=== PATIENT | male | born 1990 | race Caucasian/White ===

== ENCOUNTER 2017-02-12 | Emergency (ER) | payer BC, OTHER ==
[2017-02-12 00:13] VITALS: BP 108/56; PULSE 75; RESP 18; TEMP 98.6
--- NOTE | 2017-02-12 00:57 | ED ---
Lower Extremity Injury HPI - General Chief Complaint: Extremity Injury, Lower Stated Complaint: R Ankle Injury Time Seen by Provider: 02/12/17 00:15 Source: patient, RN notes reviewed Mode of arrival: wheelchair Limitations: no limitations - History of Present Illness Initial Comments: 26-year-old male presents emergency department with a chief complaint of right ankle pain. Patient states he was playing basket when he came down on his ankle and now has discomfort. Patient states that he has no swelling to the lateral aspect of the ankle. Patient denies any injury to the apical in the past. Patient states he hasn't had any other symptoms with this. Patient denies any head injury with the incident.Patient denies any recent fever, chills , shortness of breath, chest pain, back pain, abdominal pain, nausea vomiting, numbness or tingling, dysuria or hematuria, constipation or diarrhea, headaches or visual changes, or any other current symptoms. - Related Data Home Medications Medication Instructions Recorded Confirmed No Known Home Medications [No 02/12/17 02/12/17 Known Home Medications] Allergies Allergy/AdvReac Type Severity Reaction Status Date / Time No Known Allergies Allergy Verified 03/08/15 19:12 Review of Systems ROS Statement: Those systems with pertinent positive or pertinent negative responses have been documented in the HPI. ROS Other: All systems not noted in ROS Statement are negative. Past Medical History Additional Past Medical History / Comment(s): Malnutrition (2009) History of Any Multi-Drug Resistant Organisms: None Reported Past Surgical History: No Surgical Hx Reported Past Psychological History: Anxiety Smoking Status: Never smoker Past Alcohol Use History: Rare Past Drug Use History: None Reported General Exam - General Exam Comments Initial Comments: General: The patient is awake and alert, in no distress, and does not appear acutely ill. Neck: The neck is supple, there is no tenderness. Cardiovascular: There is a regular rate and rhythm. No murmur, rub or gallop is appreciated. Respiratory: Lungs are clear to auscultation, respirations are non-labored, breath sounds are equal. No wheezes, stridor, rales, or rhonchi. Musculoskeletal: Sensation intact with 2+ pulses throughout the right lower Extremity. Full range of motion of right heel pain with no proximal tib-fib tenderness. Patient has positive range of motion in all planes of the right ankle with lateral malleolus tenderness and swelling noted. Full range motion of the right foot with no pain noted. Neurological: CN II-XII intact, There are no obvious motor or sensory deficits. Coordination appears grossly intact. Speech is normal. Skin: Skin is warm and dry and no rashes or lesions are noted. Psychiatric: Normal mood and affect. Limitations: no limitations Course Vital Signs 02/12/17 00:10 Temperature 98.6 F Pulse Rate 75 Respiratory 18 Rate Blood Pressure 108/56 O2 Sat by Pulse 98 Oximetry Medical Decision Making - Medical Decision Making 26-year-old man presents emergency department with chief complaint of right ankle pain. at this time patient xray reviewed and negative. We discussed follow up and return parameters. Patient in agreement with plan. All questions answered. Patient will be discharged home. - Radiology Data Radiology results: report reviewed, image reviewed Disposition Clinical Impression: Right ankle sprain Disposition: HOME SELF-CARE Condition: Stable Instructions: Ankle Sprain (ED) Additional Instructions: Please use medication as discussed. Please follow up with family doctor if symptoms have not improved over the next two days. Please return to the emergency room if your symptoms increase or worsen or for any other concerns. Referrals: Mikala Patten MD [STAFF PHYSICIAN] - 1-2 days Time of Disposition: 01:18
--- NOTE | 2017-02-12 01:15 | XR ---
EXAM: XR Right Ankle Complete, 3 or More Views CLINICAL HISTORY: Reason: Pain TECHNIQUE: Frontal, lateral and oblique views of the right ankle. COMPARISON: None FINDINGS: Bones/joints: No acute fracture or dislocation identified. Ankle mortise is intact. Soft tissues: Moderate soft tissue swelling over the lateral malleolus. IMPRESSION: Moderate soft tissue swelling over the lateral malleolus without acute fracture or dislocation.
--- NOTE | 2017-02-26 07:42 | CDI ---
Documentation Clarification OP Dear RICCI Turner/ Dr. Bert Boston Please do addendum to ED report that describes the type and material used in the splint applied. Thank you, Gloria De Dios Erp Engineer If you have any questions, please contact Retail Advertising Sales Manager at [phone] [facility]
== END 2017-02-12 01:30 | disposition home or self-care (01) ==
LOC: EC
DX: S93.401A Sprain of unspecified ligament of right ankle, initial encounter (principal); X50.1XXA Overexertion from prolonged static or awkward postures, initial encounter; W19.XXXA Unspecified fall, initial encounter; Y92.009 Unspecified place in unspecified non-institutional (private) residence as the place of occurrence of the external cause; Y93.67 Activity, basketball
CPT/HCPCS: 99283

== ENCOUNTER 2017-03-10 22:08 | Emergency (ER) | payer BC ==
[2017-03-10 22:19] VITALS: TEMP 98.4
[2017-03-10] MEDS ORDERED: METOCLOPRAMIDE 5 MG/ML 2 ML VIAL IVP STA (22:27)
[2017-03-10] MEDS ORDERED: NITROGLYCERIN SL TABS 0.4 MG TAB SUBLINGUAL STA (22:27)
[2017-03-10] MEDS ORDERED: GLUCAGON 1 MG/ML VIAL IVP STA (22:28)
--- NOTE | 2017-03-10 22:30 | ED ---
General Adult HPI - General Chief complaint: ENT Stated complaint: FB in throat Time Seen by Provider: 03/10/17 22:22 Source: patient, RN notes reviewed Mode of arrival: ambulatory Limitations: no limitations - History of Present Illness Initial comments: Patient is a pleasant 26-year-old male presenting to the emergency department for possible esophageal foreign body. Patient was eating pork tacos. Patient feels like it got stuck. Patient is unable to swallow his saliva or tolerate liquids. Patient has had similar symptoms previously however previously has been able to vomited out. Patient did vomit some of the material out however believes she still has more. No dyspnea. No chest pain - Related Data Home Medications Medication Instructions Recorded Confirmed No Known Home Medications [No 02/12/17 03/10/17 Known Home Medications] Allergies Allergy/AdvReac Type Severity Reaction Status Date / Time No Known Allergies Allergy Verified 03/10/17 22:32 Review of Systems ROS Statement: Those systems with pertinent positive or pertinent negative responses have been documented in the HPI. ROS Other: All systems not noted in ROS Statement are negative. Constitutional: Denies: fever Eyes: Denies: eye pain ENT: Denies: ear pain Respiratory: Denies: dyspnea Cardiovascular: Denies: chest pain Endocrine: Denies: fatigue Gastrointestinal: Denies: abdominal pain Genitourinary: Denies: dysuria Musculoskeletal: Denies: back pain Skin: Denies: rash Neurological: Denies: weakness Past Medical History Additional Past Medical History / Comment(s): Malnutrition (2009) History of Any Multi-Drug Resistant Organisms: None Reported Past Surgical History: No Surgical Hx Reported Past Psychological History: Anxiety Smoking Status: Never smoker Past Alcohol Use History: Rare Past Drug Use History: None Reported General Exam Limitations: no limitations General appearance: alert, in no apparent distress Head exam: Present: atraumatic Eye exam: Present: normal appearance ENT exam: Present: normal oropharynx Neck exam: Present: normal inspection Respiratory exam: Present: normal lung sounds bilaterally Cardiovascular Exam: Present: regular rate, normal rhythm GI/Abdominal exam: Present: soft. Absent: tenderness Extremities exam: Present: normal inspection Neurological exam: Present: alert Psychiatric exam: Present: normal affect, normal mood Skin exam: Present: normal color Course Vital Signs 03/10/17 22:18 Temperature 98.4 F Pulse Rate 78 Respiratory 18 Rate Blood Pressure 127/67 O2 Sat by Pulse 97 Oximetry Medical Decision Making - Medical Decision Making Patient tolerating liquids following medications. Patient updated on need for follow-up and need for scope in the future. Disposition Clinical Impression: Esophageal foreign body Disposition: HOME SELF-CARE Condition: Stable Instructions: Esophageal Foreign Body (ED) Additional Instructions: Please follow-up with gastroenterology in the next couple of days for recheck. He will need to have EGD/scope done. Return for not tolerating fluids, difficulty breathing, worsening symptoms, pain or bleeding or other concerns. Liquid diet for the next 24 hours. Referrals: Nilesh Mcmahon MD [Primary Care Provider] - 1-2 days Farooq Keenan MD [STAFF PHYSICIAN] - 1-2 days Time of Disposition: 22:56
[2017-03-10 22:57] VITALS: BP 144/57; PULSE 70; RESP 16
== END 2017-03-10 23:06 | disposition home or self-care (01) ==
LOC: EC 22:08
DX: T18.128A Food in esophagus causing other injury, initial encounter (principal)
CPT/HCPCS: 99283; 96374; 96375; J1610; J2765

== ENCOUNTER → 2018-07-06 | Outpatient (CLI) | payer BC ==
[2018-07-06 17:35] LABS: Basophils % (A) 1 %; Eosinophils # (A) 0.5 k/uL (0-0.7); Eosinophils % (A) 7 %; HCT 43.4 % (39.0-53.0); HGB 14.1 gm/dL (13.0-17.5); Lymphocytes # (A) 2.1 k/uL (1.0-4.8); Lymphocytes % (A) 28 %; MCH 28.1 pg (25.0-35.0); MCHC 32.6 g/dL (31.0-37.0); MCV 86.3 fL (80.0-100.0); Mean Platelet Volume 6.8; Monocytes # (A) 0.4 k/uL (0-1.0); Monocytes % (A) 6 %; Neutrophils # (A) 4.3 k/uL (1.3-7.7); Neutrophils % (A) 57 %; Platelet Count 201 k/uL (150-450); RBC 5.03 m/uL (4.30-5.90); RDW 13.5 % (11.5-15.5); WBC 7.5 k/uL (3.8-10.6)
[2018-07-06 17:48] LABS: ALT 38 U/L (21-72); AST 32 U/L (17-59); Albumin 4.3 g/dL (3.5-5.0); Alkaline Phosphatase 43 U/L (38-126); Anion Gap 8 mmol/L; Blood Urea Nitrogen 16 mg/dL (9-20); Calcium 9.6 mg/dL (8.4-10.2); Carbon Dioxide 27 mmol/L (22-30); Chloride 105 mmol/L (98-107); Glucose 94 mg/dL (74-99); Potassium 4.4 mmol/L (3.5-5.1); Sodium 140 mmol/L (137-145); Total Bilirubin 0.8 mg/dL (0.2-1.3); Total Protein 7.3 g/dL (6.3-8.2)
[2018-07-06 18:03] LABS: T4, Free (Free Thyroxine) 0.85 ng/dL (0.78-2.19)
== END ==
LOC: LABWHC1 16:49
PROVIDERS: ATTEND Family Medicine
DX: R53.83 Other fatigue (principal); Z77.011 Contact with and (suspected) exposure to lead
CPT/HCPCS: 36415; 80053; 82306; 83655; 84439; 84443; 84481; 85025

== ENCOUNTER → 2022-01-23 | Outpatient (CLI) | payer OTHER ==
--- NOTE | 2022-01-24 07:04 | MR ---
EXAMINATION TYPE: MR lumbar spine wo con DATE OF EXAM: 01/23/2022 COMPARISON: NONE HISTORY: Lower back pain x 2 mos, no trauma. TECHNIQUE: Multiplanar, multisequence imaging of the lumbar spine is performed without IV contrast. FINDINGS: Sagittal images of the lumbar spine show vertebral body heights to appear satisfactory. Dis c desiccation L5-S1 level with slight grade 1 retrolisthesis of L5 on S1 otherwise the intervertebral discs demonstrate normal heights and hydration. The conus medullaris is normal in position and sign al ending mid L1 level. The bone marrow signal intensity is within normal limits. Axial images show T12-L1 through the L4-L5 levels to appear within normal limits. Axial images at L5-S1 level show subtle spondylolisthesis and tiny central disc protrusion. Spinal ca nal is preserved. Bilateral neural foramina are patent. Paraspinal muscle bulk is preserved. IMPRESSION: Subtle spondylolisthesis and mild degenerative changes at L5-S1 level.
== END | disposition home or self-care (01) ==
LOC: RADMRIMAIN 19:07
PROVIDERS: ATTEND Family Medicine
DX: M51.36 Other intervertebral disc degeneration, lumbar region (principal)
CPT/HCPCS: 72148

== ENCOUNTER 2022-10-04 06:02 | Day surgery (SDC) | payer OTHER ==
[2022-10-03 08:31] VITALS: BMI 28.5
[~2022-10-04 06:02] MED LIST: HEPARIN SODIUM,PORCINE/PF 5,000 UNIT/0.5 ML SYRINGE SQ PRN
[2022-10-04] MEDS ORDERED: ONDANSETRON 4 MG/2 ML VIAL IVP ONE (06:38)
[2022-10-04] MEDS ORDERED: LACTATED RINGERS 1,000 ML IV SCH (06:38)
[2022-10-04] MEDS ORDERED: SCOPOLAMINE 1 MG/72 HR PATCH TRANSDERM ONE (06:38)
[2022-10-04] MEDS ORDERED: DEXAMETHASONE SOD PHOSPHATE 4 MG/ML 1 ML VIAL IV ONE (06:38)
[2022-10-04] MEDS ORDERED: MIDAZOLAM 2 MG/2 ML VIAL IV PRN (06:38)
[2022-10-04] MEDS ORDERED: HYDROmorphone 0.5 MG/0.5 ML SYRINGE IVP PRN (07:00)
[2022-10-04] MEDS ORDERED: PROPOFOL 10 MG/ML 20 ML VIAL IV ONE (07:22)
[2022-10-04] MEDS ORDERED: MIDAZOLAM 2 MG/2 ML VIAL ONE (07:22)
[2022-10-04] MEDS ORDERED: fentaNYL (PF) 50 MCG/ML 2 ML AMP ONE (07:22)
[2022-10-04] MEDS ORDERED: SUCCINYLCHOLINE CHLORIDE 200 MG/10 ML VIAL IV ONE (07:22)
--- NOTE | 2022-10-04 07:29 | P.GSHP ---
History of Present Illness H&P Date: 10/04/22 CHIEF COMPLAINT: Right buttock and hip mass HISTORY OF PRESENT ILLNESS: The patient is a 32 year-old male with history of mass along the right buttock/hip. He presents today for surgical excision. PAST MEDICAL HISTORY: Please see list. PAST SURGICAL HISTORY: Please see list. MEDICATIONS: Please see list. ALLERGIES: Please see list. SOCIAL HISTORY: Please see list. FAMILY HISTORY: No reports of Crohn disease or ulcerative colitis. REVIEW OF ORGAN SYSTEMS: CONSTITUTIONAL: No reports of fevers or chills. GI: Denies any blood in stools or constipation. PHYSICAL EXAM: VITAL SIGNS: Stable Musculoskeletal: No clubbing cyanosis or edema SKIN: 5-cm right buttock/hip mass GENERAL: Well developed and in no acute distress. Pleasant. HEENT: No sclera icterus. Extraocular movements grossly intact. Moist buccal mucosa. Head is atraumatic, normocephalic. Hears conversational speech. No nasal drainage. NECK: Supple without lymphadenopathy. No JV distention. CHEST: Non-labored respirations and equal bilateral excursions. CARDIOVASCULAR: Regular rate and rhythm. Palpable 2+ radial pulses. ABDOMEN: Soft. Non-tender. Nondistended. NEUROLOGIC: No focal or lateralizing signs. PSYCH: Appropriate affect. Alert and oriented to person, place and time. ASSESSMENT: 1. Right buttock/hip mass PLAN: 1. Will proceed of excision of subcutaneous tumor along the right buttock/hip. 2. DVT prophylaxis. 3. Antibiotic prophylaxis. 4. Time of recovery, at least one week. Past Medical History Additional Past Medical History / Comment(s): rt buttock/rt hip cyst-was open and drng,steroids Aug 2022,hx had low b/p in high school was told to consume more sodium,Malnutrition (2009) History of Any Multi-Drug Resistant Organisms: None Reported Past Surgical History: No Surgical Hx Reported Past Anesthesia/Blood Transfusion Reactions: No Reported Reaction Additional Past Anesthesia/Blood Transfusion Reaction / Comment(s): no hx general anesthesia or blood transfusion Smoking Status: Never smoker - Past Family History Mother Family Medical History: No Reported History Medications and Allergies Home Medications Medication Instructions Recorded Confirmed Type No Known Home Medications 02/12/17 10/04/22 History Allergies Allergy/AdvReac Type Severity Reaction Status Date / Time No Known Allergies Allergy Verified 10/04/22 06:43 Surgical - Exam Vital Signs Pulse Resp BP Pulse Ox 68 16 137/72 97 10/04/22 06:51 10/04/22 06:51 10/04/22 06:51 10/04/22 06:51
[2022-10-04 07:51] LABS: ALT 35 U/L (4-49); AST 33 U/L (17-59); African American GFR (CKD) >90 (>60 ml/min/1.73 sqM); Albumin 4.3 g/dL (3.5-5.0); Alkaline Phosphatase 47 U/L (38-126); Anion Gap 7 mmol/L; Blood Urea Nitrogen 16 mg/dL (9-20); Calcium 8.8 mg/dL (8.4-10.2); Carbon Dioxide 25 mmol/L (22-30); Chloride 108 mmol/L (98-107); Glucose 95 mg/dL (74-99); Non-African American GFR(CKD) 88 (>60 ml/min/1.73 sqM); Potassium 3.7 mmol/L (3.5-5.1); Sodium 140 mmol/L (137-145); Total Bilirubin 1.1 mg/dL (0.2-1.3); Total Protein 7.1 g/dL (6.3-8.2)
[2022-10-04] MEDS ORDERED: LIDOCAINE 1%-EPI 1:100,000 20 ML VIAL SQ ONE (07:59)
[2022-10-04 08:04] LABS: Basophils % (A) 1 %; Eosinophils # (A) 0.2 k/uL (0-0.7); Eosinophils % (A) 4 %; HCT 40.9 % (39.0-53.0); HGB 14.5 gm/dL (13.0-17.5); Lymphocytes # (A) 1.7 k/uL (1.0-4.8); Lymphocytes % (A) 29 %; MCH 29.7 pg (25.0-35.0); MCHC 35.5 g/dL (31.0-37.0); MCV 83.8 fL (80.0-100.0); Mean Platelet Volume 8.1; Monocytes # (A) 0.5 k/uL (0-1.0); Monocytes % (A) 8 %; Neutrophils # (A) 3.5 k/uL (1.3-7.7); Neutrophils % (A) 57 %; Platelet Count 191 k/uL (150-450); RBC 4.88 m/uL (4.30-5.90); WBC 6.1 k/uL (3.8-10.6)
[2022-10-04 08:55] VITALS: TEMP 97.4
--- NOTE | 2022-10-04 09:00 | P.OP ---
Date of Procedure: 10/04/22 Description of Procedure: SURGEON: ANUPAMA TALLEY MD DIRECTOR ORACLE RETAIL: None. PREOPERATIVE DIAGNOSES: 1. Right buttock/hip mass POSTOPERATIVE DIAGNOSES: 1. Right buttock/hip mass PROCEDURES PERFORMED: 1. Excision of subcutaneous right buttock mass, 4 x 9 cm 2. Complex flap closure righ buttock incision, 4 x 9 cm Anesthesia: GETA, local Estimated Blood Loss (ml): 30 Pathology: 1. Right buttock mass Condition: stable Disposition: SAME DAY COMPLICATIONS: None. Operative Findings: 1. Deep subcutaneous pocket of right hip/buttock with superficial pre-existing bruising 2. Flap closure with wide undermining for closure of right buttock/hip wound 4 x 9 cm INDICATIONS: The patient is a 32-year-old male who presents with complex right buttock/hip mass with prior rupture and drainage. Benefits and risks of surgical intervention were described including bleeding, infection, seroma, pain, wound dehiscence and recurrence. Informed consent was obtained. DESCRIPTION OR PROCEDURE: Patient was brought into the operating room. After general induction, he was positioned in left lateral position. The right hip/buttock was prepped and draped in a standard sterile fashion with ChloraPrep. Timeout protocol was confirmed with the surgical team regarding the patient's name, procedure to be performed including preoperative medications. DVT prophylaxis was confirmed. Next, attention is brought to the right hip/buttock. An elliptical longitudinal incision using #10 blade was made along the marking into the dermis and subcutaneous tissue. Electro-Bovie cautery was used to enter deep into the subcutaneous tissue of the right buttock 9 x 4 cm. A pocket was identified with easy friability of the tissue with dehiscense of the skin. Bilateral skin flaps were raised with undermining to allow for closure. The tumor was excised in total. 0 Vicryl for the fascia and deep subcutaneous tissue followed by 3-0 Monocryl in a running fashion was placed closing the skin completely. Final length of complex incisional closure is 10-cm. The skin was cleansed and Exofin tape with liquid glue. The incision was covered with Optifoam dressing. At the end of the procedure, needle, sponge, and instrument count was verified correct by surgical services manager. The patient was transferred into the postanesthesia care unit in stable condition. The patient's Nichol was immediately notified via telephone at the end of the procedure including wound care and activity. Plan - Discharge Summary Discharge Rx Participant: No New Discharge Prescriptions: New Ibuprofen [Motrin] 600 mg PO Q8HR PRN #30 tab PRN Reason: Pain Acetaminophen Tab [Tylenol Tab] 1,000 mg PO Q6HR PRN #30 tablet PRN Reason: Pain Discharge Medication List Acetaminophen Tab [Tylenol Tab] 1,000 mg PO Q6HR PRN #30 tablet 10/04/22 [Rx] Ibuprofen [Motrin] 600 mg PO Q8HR PRN #30 tab 10/04/22 [Rx] Follow up Appointment(s)/Referral(s): Anupama Talley MD [STAFF PHYSICIAN] - 10/08/22 Patient Instructions/Handouts: Excision of Skin Lesion (DC) Activity/Diet/Wound Care/Special Instructions: DO NOT REMOVE DRESSING. SEE INSTRUCTIONS ON DRESSING May shower. No bath tub soaks until cleared by surgeon Diet as tolerated. Use Tylenol and ibuprofen or Aleve scheduled for the next 24-48 hours for best pain relief. NO ICE TO INCISION Discharge Disposition: HOME SELF-CARE
[2022-10-04] MEDS ORDERED: LACTATED RINGERS 1,000 ML IV ONE (09:21)
[2022-10-04 09:53] VITALS: BP 126/73; PULSE 68; RESP 16
== END 2022-10-04 10:13 | disposition home or self-care (01) ==
LOC: OR 06:02
PROVIDERS: ATTEND Surgery Plastic and Reconstructive Surgery
DX: L72.0 Epidermal cyst (principal); L90.5 Scar conditions and fibrosis of skin; Z86.39 Personal history of other endocrine, nutritional and metabolic disease; Z79.52 Long term (current) use of systemic steroids
CPT/HCPCS: 27043; 88304; 80053; 85025; J2250; J0330; J1100; J0690; J2405; J3010; J2704; J1644

== ENCOUNTER 2023-05-20 10:57 | Day surgery (SDC) | payer OTHER ==
[2023-05-14 10:38] VITALS: BMI 27.3
[~2023-05-20 10:57] MED LIST changes: -HEPARIN SODIUM,PORCINE/PF 5,000 UNIT/0.5 ML SYRINGE SQ PRN; +LACTATED RINGERS 1,000 ML IV SCH; +LIDOCAINE 1% (10MG/ML) FOR IV START INTRADERMA PRN
[2023-05-20 11:34] VITALS: TEMP 97.8
[2023-05-20] MEDS ORDERED: PROPOFOL 10 MG/ML 20 ML VIAL IV ONE (13:08)
[2023-05-20] MEDS ORDERED: LIDOCAINE 2% INJ 20 MG/ML (2 ML VIAL) ONE (13:08)
--- NOTE | 2023-05-20 13:19 | P.PCN ---
Date of Procedure: 05/20/23 Procedure(s) Performed: BRIEF HISTORY: Patient is a 32-year-old, pleasant, white male scheduled for an upper endoscopy as a part of evaluation of GERD and intermittent dysphagia to solids for the last 6 years duration. He has these episodes usually with meat approximately every 2-3 months. He went to to the emergency room on 3 different occasions with acute food impaction but symptoms resolved without any endoscopic intervention.. PROCEDURE PERFORMED: Esophagogastroduodenoscopy with dilation. PREOPERATIVE DIAGNOSIS: Intermittent dysphagia to solids of 6 years duration. IV sedation per anesthesia. PROCEDURE: After informed consent was obtained, the patient was brought into the endoscopy unit. IV sedation was administered by Anesthesia under continuous monitoring. Initially the Olympus GIF-140 video endoscope was inserted into the mouth. Esophagus intubated without any difficulty. It was gradually advanced into the stomach and duodenum and carefully examined. The bulb and the second part of the duodenum appeared normal. The scope at this time was withdrawn to the stomach, adequately insufflated with air, and upon careful examination, mucosa of the antrum, body, cardia and the fundus appeared normal. The scope was then withdrawn into the esophagus. The GE junction was located at 44 cm from the incisors. There were multiple superficial mucosal rings noted in the distal esophagus with a distal esophageal stricture at the GE junction which was dilated using 12-15 mm TTS balloon in a sequential fashion for 60 seconds. Following the dilation there was some oozing identified. The mucosa in the mid and distal esophagus had multiple longitudinal ridges and thickened mucosa suspi cious for eosinophilic esophagitis and multiple biopsies were done from this area. The rest of esophagus appeared normal and the patient tolerated the procedure well. IMPRESSION: 1. Multiple superficial mucosal rings in the distal esophagus with distal esophageal stricture status post balloon dilation using 12-15 mm TTS balloon as described above. 2. Thickened mucosal folds involving the mid and distal esophagus with longitudinal ridges and furrows suspicious for eosinophilic esophagitis is post multiple biopsies. RECOMMENDATIONS: The findings of this examination were discussed with the patient as well as a family. He was advised to remain on clear liquids for lunch today. Continue to 20 mg twice daily and follow antireflux measures. Await biopsy results and follow up in office in 3-4 weeks.
[2023-05-20 13:46] VITALS: BP 124/77; PULSE 55; RESP 18
== END 2023-05-20 13:54 | disposition home or self-care (01) ==
LOC: ORWHC2ENDO 10:57
PROVIDERS: ATTEND Internal Medicine Gastroenterology
DX: K20.0 Eosinophilic esophagitis (principal); K22.2 Esophageal obstruction; Z79.899 Other long term (current) drug therapy
CPT/HCPCS: 88305; 43239; 43249; J2704; J2001; C1726